=== PATIENT | male | born 1990 | race Caucasian/White ===

== ENCOUNTER → 2020-11-13 | Outpatient (CLI) | payer OTHER ==
[~2020-11-13] VITALS: Ht 182.9 cm; Wt 106.8 kg
[~2020-11-13] MED LIST: GADOBUTROL 7.5 MMOL/7.5 ML (GADAVIST) VIAL IV ONE; IOHEXOL 300 MG/ML 50 ML (OMNIPAQUE 300) VIAL IV ONE
--- NOTE | 2020-11-13 13:52 | Diagnostic Imaging Report ---
INDICATION: Right shoulder pain and injury. Patient brought to the procedure room placed on table in the supine position. Skin of the right shoulder was prepped and draped in usual sterile fashion. Small amount 1% lidocaine was utilized for local anesthesia. 22-gauge needle was advanced into the right shoulder at the rotator interval. A 15 mL solution of iodinated contrast, normal saline and gadolinium was injected under fluoroscopic observation. Needle was withdrawn, hemostasis was obtained. Total of 14 seconds fluoroscopic time was utilized. Patient tolerated the procedure well and was sent to MRI in satisfactory condition. IMPRESSION: Successful right shoulder injection of gadolinium contrast solution, using fluoroscopy. Dictated by: Dictated on workstation # [id number]
--- NOTE | 2020-11-13 16:32 | Diagnostic Imaging Report ---
PROCEDURE: MRI upper extremity any joint with contrast right. TECHNIQUE: Multiplanar, multisequence contrast-enhanced MRI of the right upper extremity was accomplished. INDICATION: Fall with right shoulder pain. COMPARISON: None FINDINGS: No acute fracture is seen in the right shoulder. Alignment appears normal. The joint is well distended with contrast. There is fluid in the subacromial subdeltoid bursa, which may be from anesthetic injection or a mild bursitis. Alignment is normal. The supraspinatus tendon is intact. The infraspinatus tendon is intact. The teres minor and subscapularis tendons are intact. There is no muscular atrophy. The long head of the biceps tendon is normal in course and signal. The anterior superior glenoid labrum is mildly diminutive, but the middle glenohumeral ligament appears prominent. There is a sub-labral recess superiorly, which appears mildly irregular and could represent a low-grade tear (image 10 series 6). The acromion has a curved undersurface without hooking. The coracoclavicular and coracoacromial ligaments are intact. Soft tissues about the right shoulder are otherwise unremarkable. IMPRESSION: 1. Subtle irregularity at the sub-labral recess of the superior right glenoid labrum, could represent a small low-grade tear. No labral displacement is seen. 2. No high-grade partial-thickness or full-thickness rotator cuff tear. 3. Mild subacromial subdeltoid fluid, may be due to bursitis or secondary to injection. Dictated by: Dictated on workstation # [id number]
== END ==
LOC: RAD 12:45
PROVIDERS: ATTEND Orthopaedic Surgery
DX: S43.431A Superior glenoid labrum lesion of right shoulder, initial encounter (principal); W19.XXXA Unspecified fall, initial encounter
CPT/HCPCS: 23350; 73040; 73222

== ENCOUNTER 2020-12-25 02:36 | Emergency (ER) | payer BC, OTHER ==
[~2020-12-25] VITALS: Ht 182.9 cm; Wt 104.5 kg
[2020-12-25 02:48] VITALS: BP 110/69
[2020-12-25] MEDS ORDERED: RX-ONDANSETRON 4 MG ODT (ZOFRAN) PPK #4 PO STA (03:03)
[2020-12-25] MEDS ORDERED: ONDA4TAB11 PO (03:08)
--- NOTE | 2020-12-25 03:08 | ED GI ---
General Chief Complaint: Abdominal/GI Problems Stated Complaint: N/V/D Nursing Triage Note: PT AMBULATES TO ROOM #6 WITH C/O NAUSEA, VOMITING, ET DIARRHEA. REPORTS AT APPROX 2130 ON THE EVENING OF 12/24/20 HE BEGAN TO EXPERIENCE NAUSEA, SELF INDUCED VOMITING, THEN EXPERIENCED X4 EPISODES OF EMESIS. REPORTS BETWEEN 4-5 EPISODES OF DIARRHEA SINCE ONSET OF NAUSEA/VOMITING. CURRENTLY DENIES NAUSEA OR PAIN DURING TRIAGE. A&OX4. Sepsis Screen: No Definite Risk Source of Information: Patient Exam Limitations: No Limitations History of Present Illness Date Seen by Provider: Dec 25, 2020 Time Seen by Provider: 02:52 Initial Comments Patient and his significant other present to the ER by private conveyance with chief complaint of onset nausea vomiting diarrhea without blood or fever starting the same time tonight as his significant other. They both ate Sonic tonight before becoming violently ill. He has not taken anything for his nausea or diarrhea at this time. No significant medical or surgical history. He says his symptoms are not as bad as his 's. Allergies and Home Medications Allergies Coded Allergies: No Allergy Information Available (Unverified , 11/13/20) Patient Home Medication List Home Medication List Reviewed: Yes Review of Systems Review of Systems Constitutional: No chills, No diaphoresis EENTM: No Blurred Vision, No Double Vision Respiratory: Denies Cough, Denies Shortness of Air Cardiovascular: Denies Chest Pain, Denies Lightheadedness Gastrointestinal: Denies Constipated; Diarrhea, Nausea, Vomiting Genitourinary: Denies Discharge, Denies Drainage Musculoskeletal: No back pain, No joint pain Past Fegitup-Vjnwki-Zrzpyc Hx Patient Social History Alcohol Use: Regular Use Number of Drinks Today: 0 Alcohol Beverage of Choice: Beer Smoking Status: Never a Smoker 2nd Hand Smoke Exposure: No Recent Infectious Disease Expo: No Recent Hopitalizations: No Seasonal Allergies Seasonal Allergies: Yes (PRESCRIBED CLARITIN) Past Medical History Surgeries: No Respiratory: No Cardiac: No Neurological: No Genitourinary: No Gastrointestinal: No Musculoskeletal: No Endocrine: No HEENT: No Cancer: No Psychosocial: No Integumentary: No Blood Disorders: No Physical Exam Vital Signs Vital Signs - First Documented 12/25/20 02:48 Temp 36.8 Pulse 90 Resp 18 B/P (MAP) 110/69 (83) Pulse Ox 98 O2 Delivery Room Air Capillary Refill : Less Than 3 Seconds Height/Weight/BMI Height: '" Weight: lbs. oz. kg; 31.00 BMI Method: General Appearance: WD/WN, mild distress HEENT: PERRL/EOMI, pharynx normal Neck: full range of motion, normal inspection Respiratory: no respiratory distress, no accessory muscle use Cardiovascular: normal peripheral pulses, regular rate, rhythm Gastrointestinal: non tender, soft Neurologic/Psychiatric: alert, oriented x 3 Skin: normal color, warm/dry Progress/Results/Core Measures Results/Orders Vital Signs/I&O 12/25/20 02:48 Temp 36.8 Pulse 90 Resp 18 B/P (MAP) 110/69 (83) Pulse Ox 98 O2 Delivery Room Air Blood Pressure Mean: 83 Progress Progress Note : Time: 03:05 Progress Note Aseptic vital signs. Plan to give him some ODT Zofran and return precautions. Likely a toxin forming gastroenteritis Departure Impression Primary Impression: Gastroenteritis and colitis, toxic Disposition: 01 HOME, SELF-CARE Condition: Stable Departure-Patient Inst. Decision time for Depature: 03:00 Referrals: JUDY CALIXTO MD (PCP/Family) Primary Care Physician Patient Instructions: Diarrhea in Adolescents and Adults, [id number] Add. Discharge Instructions: I suspect you were exposed to a toxin and the food you ate which will cause about 24 to 48 hours of nausea vomiting and diarrhea. Allow the diarrhea to go for the first 1 to 2 days on its own. Use ondansetron 1 to 2 tablets every 6 hours under the tongue as necessary to control your nausea so that you can put in fluids faster than you are losing t hem. Return to the ER if you are unable to complete this task and become dehydrated or you develop significant fever above 102.5. If it is a virus it may last up to 3 to 5 days and may even be accompanied by some low-grade fever. Tylenol and Motrin are recommended at that time. Protonix 40 mg daily may help reduce some of the discomfort related to the vomiting and diarrhea. Stick to a bland diet of foods such as bananas, rice, applesauce and toast until your diarrhea resolves. All discharge instructions reviewed with patient and/or family. Voiced understanding. Scripts Ondansetron (Ondansetron Odt) 4 Mg Tab.rapdis 4 MG PO Q6H PRN for NAUSEA/VOMITING, #8 TAB 0 Refills Prov: YAKOV BROTHERS 12/25/20 Work/School Note: Work Release Form Date Seen in the Emergency Department: Dec 25, 2020 Return to Work: Dec 27, 2020 Restrictions: No Restrictions YAKOV BROTHERS Dec 25, 2020 03:08
== END 2020-12-25 03:16 | disposition home or self-care (01) ==
LOC: EDUNIT# 02:36 → ER 02:37
DX: K52.1 Toxic gastroenteritis and colitis (principal)
CPT/HCPCS: 99283